=== PATIENT | male | born 1960 | race African-American/Black ===

== ENCOUNTER 2023-10-31 07:39 | Emergency (ER) | payer BC ==
[~2023-10-31] VITALS: Ht 170.2 cm; Wt 79.4 kg
[2023-10-31 07:48] VITALS: BP_SYST 130; PULSE 67; RESP 16; TEMP 97.3; O2SAT 99
[2023-10-31 07:53] VITALS: BP_SYST 130; PULSE 67; RESP 16; TEMP 97.3; O2SAT 99
== END 2023-10-31 07:59 | disposition home or self-care (01) ==
LOC: SED 07:39
DX: R05.9 Cough, unspecified (principal)
CPT/HCPCS: 99281